=== PATIENT | male | born 1995 | race Caucasian/White ===

== ENCOUNTER 2018-09-21 10:03 | Emergency (ER) | payer MEDICAID ==
[~2018-09-21] VITALS: Ht 180.3 cm; Wt 77.1 kg
[2018-09-21 10:05] VITALS: BP_SYST 110
[2018-09-21] MEDS ORDERED: IBUPROFEN 600 MG TABLET PO ONE (10:45)
[2018-09-21 11:20] VITALS: BP_SYST 110
== END 2018-09-21 11:20 ==
LOC: SED 10:03
DX: S43.402A Unspecified sprain of left shoulder joint, initial encounter (principal); S63.91XA Sprain of unspecified part of right wrist and hand, initial encounter; V28.0XXA Motorcycle driver injured in noncollision transport accident in nontraffic accident, initial encounter; Y93.89 Activity, other specified; Y92.410 Unspecified street and highway as the place of occurrence of the external cause; Y99.8 Other external cause status
CPT/HCPCS: 73030; 99283

== ENCOUNTER 2023-05-20 06:04 | Emergency (ER) | payer MEDICAID ==
[~2023-05-20] VITALS: Ht 182.9 cm; Wt 89.4 kg
[2023-05-20 06:09] VITALS: BP_SYST 159; PULSE 98; RESP 18; TEMP 97; O2SAT 98
[2023-05-20] MEDS ORDERED: KETAMINE HCL 500 MG/10 ML VIAL IVP ONE (06:45)
[2023-05-20] MEDS ORDERED: KETAMINE HCL IN 0.9 % NACL 50 MG/5 ML SYRINGE IVP ONE (06:45)
[2023-05-20] MEDS ORDERED: MIDAZOLAM HCL 5 MG/5 ML VIAL IVP ONE (06:45)
[2023-05-20] MEDS ORDERED: FLUMAZENIL 0.1 MG/ML IVP ONE (09:00)
[2023-05-20 09:05] VITALS: BP_SYST 129; PULSE 89; RESP 18; TEMP 97; O2SAT 98
[2023-05-20] MEDS ORDERED: NALOXONE HCL 2 MG/2 ML SYR IVP ONE (10:00)
== END 2023-05-20 10:25 | disposition home or self-care (01) ==
LOC: SED 06:04
DX: M24.412 Recurrent dislocation, left shoulder (principal)
CPT/HCPCS: 99285; 23650; 96374; 96375; 73030; J3490; J2250; J2310